=== PATIENT | female | born 1955 | race Caucasian/White ===

== ENCOUNTER → 2018-08-03 11:12 | Outpatient (CLI) | payer MEDICARE, OTHER, SELFPAY ==
--- NOTE | 2018-08-03 | DI.MRI.S_ITS ---
PROCEDURE: MR SHOULDER RT WO CON INDICATIONS: PAIN IN RIGHT SHOULDER TECHNIQUE: Noncontrast oblique coronal T2 fast spin echo with fat saturation, oblique sagittal T1 spin echo and T2 fast spin echo with fat saturation, axial T1 spin echo and T2 fast spin echo with fat saturation through the shoulder. COMPARISON: None. FINDINGS: Image quality: Excellent. Rotator cuff: The supraspinatus tendon is thickened with increased internal signal compatible with severe tendinosis. There is a partial, high-grade, undersurface tear of the supraspinatus tendon involving the midsubstance (series 5, images 13 and 14). There is a partial, low-grade bursal surface tear involving the humeral attachment (series 5, image 9). The infraspinatus tendon is thickened with increased internal signal compatible with moderate tendinosis. The subscapularis tendon is intact. Sagittal images demonstrate no muscle atrophy. Bones and bursae: No bone marrow contusions or fractures. Moderate acromioclavicular joint osteoarthritic degenerative changes are noted. There is a small, multiloculated ganglion cyst projects off the superior margin of the acromioclavicular joint. Mild glenohumeral joint osteoarthritic degenerative changes. The acromion demonstrates conventional anatomy, without an os acromiale. Fluid is noted in the subacromial/subdeltoid bursa compatible with mild bursitis. Capsule and soft tissues: In the absence of intra-articular contrast, the labrum and glenohumeral ligaments appear intact. The long head of the biceps tendon demonstrates normal location and morphology. The rotator interval appears normal, without fibrosis. The coracohumeral ligament is normal in thickness. IMPRESSION: 1. Severe supraspinatus tendinosis with high-grade, partial undersurface tear involving the mid substance of the tendon and low-grade, partial bursal surface tear involving the humeral attachment of the tendon. 2. Moderate infraspinatus tendinosis. 3. 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 4. Mild subacromial/subdeltoid bursitis. Dictated by: Shaneka Malone MD, PhD on 08/03/2018 at 18:35 Approved by: Shaneka Malone MD, PhD on 08/07/2018 at 10:00
== END ==
PROVIDERS: Visit Provider Orthopaedic Surgery
DX: M25.511 Pain in right shoulder (principal); M19.011 Primary osteoarthritis, right shoulder; M75.51 Bursitis of right shoulder; M75.111 Incomplete rotator cuff tear or rupture of right shoulder, not specified as traumatic
CPT/HCPCS: 73221